=== PATIENT | female | born 1980 | race Asian ===

== ENCOUNTER 2021-11-12 08:09 | Outpatient (CLI) | payer BC, SELFPAY ==
--- NOTE | 2021-11-12 08:15 | CRLHL7_ITS ---
For Patients: As a result of the Century Cures Act, medical imaging exams and procedure reports are released immediately into your electronic medical record. You may view this report before your referring provider. If you have questions, please contact your health care provider. BILATERAL SCREENING MAMMOGRAM WITH COMPUTER-AIDED DETECTION TECHNIQUE: CC and MLO views were obtained. These mammographic images have been obtained using full-field digital technique. These mammographic images were interpreted with the benefit of computer-aided detection. COMPARISON FILM: 11/09/20, 10/25/19. FINDINGS: The breasts are heterogeneously dense, which may obscure small masses IMPRESSION: There is no radiographic evidence for malignancy. ASSESSMENT: BI-RADS Category 1: Negative RECOMMENDATION: Routine screening mammogram in 1 year. A lay language report of this examination will be provided to the patient. Travis Haley M.D. Diagnostic Radiologist [email or web address] WILBERTO/Dictated by: Travis Haley MD @ 11/12/2021 1:18:00 PM (Electronically Signed)
== END 2021-11-12 08:10 | disposition home or self-care (01) ==
LOC: MAMMO 08:10
PROVIDERS: Visit Provider Physician Assistant
DX: Z12.31 Encounter for screening mammogram for malignant neoplasm of breast (principal); R92.2 Inconclusive mammogram
CPT/HCPCS: 77063; 77067

== ENCOUNTER 2023-01-22 09:01 | Outpatient (CLI) | payer BC, SELFPAY ==
--- NOTE | 2023-01-22 09:15 | CRLHL7_ITS ---
For Patients: As a result of the Century Cures Act, medical imaging exams and procedure reports are released immediately into your electronic medical record. You may view this report before your referring provider. If you have questions, please contact your health care provider. BILATERAL SCREENING MAMMOGRAM WITH COMPUTER-AIDED DETECTION TECHNIQUE: CC and MLO views were obtained. These mammographic images have been obtained using full-field digital technique. These mammographic images were interpreted with the benefit of computer-aided detection. COMPARISON FILM: 11/12/21, 11/09/20, 10/25/19. FINDINGS: The breasts are heterogeneously dense, which may obscure small masses IMPRESSION: There is no radiographic evidence for malignancy. ASSESSMENT: BI-RADS Category 1: Negative RECOMMENDATION: Routine screening mammogram in 1 year. A lay language report of this examination will be provided to the patient. Travis Haley M.D. Diagnostic Radiologist [email or web address] WILBERTO/Dictated by: Travis Haley MD @ 01/22/2023 11:45:00 AM (Electronically Signed)
== END 2023-01-22 09:02 | disposition home or self-care (01) ==
LOC: MAMMO 09:02
PROVIDERS: Visit Provider Physician Assistant
DX: Z12.31 Encounter for screening mammogram for malignant neoplasm of breast (principal); R92.2 Inconclusive mammogram
CPT/HCPCS: 77067

== ENCOUNTER 2024-02-09 09:34 | Outpatient (CLI) | payer BC, SELFPAY ==
--- OUTSIDE RECORDS SUMMARY | 2024-02-09 09:36 | XMS_ITS | Clinical Summary ---
Author Organization [facility] Address [place], [place] [address] Care Team Providers Care Deputy Treasurer Name Role Phone Unavailable Primary Care Provider Unavailabl e Allergies No known active allergies Medications Medication Sig Dispensed Refills Start Date End Date Status ibuprofen (ADVIL; MOTRIN) 600 mg tablet Take 1 tablet by mouth every 6 hours. Maximum of 3200 mg in 24 hours. 60 tablet 01/08/2013 Active norethindrone, Contraceptive, (ORTHO MICRONOR) 0.35 mg tabletIndications:Co ntraception Take 1 tablet by mouth once daily. 3 Package 4 02/14/2013 Active vitamin-folic acid 1 mg ( VITAMIN) tablet/capsuleIndica tions:Routine follow-up Take 1 tablet by mouth once daily. 100 capsule 4 02/14/2013 Active Active Problems Problem Noted Date Diagnosed Date S/P section 01/06/2013 delivery at 35 weeks 01/06/2013 Thyroid function test abnormal 07/20/2012 Resolved Problems Problem Noted Date Diagnosed Date Resolved Date Malpresentation of fetus, delivered 01/06/2013 02/14/2013 PROM (premature rupture of membranes) 01/05/2013 02/14/2013 Surveillance of other previo usly prescribed contraceptive method 08/19/2006 08/22/2012 Other general counseling and advice for contraceptive management 05/21/2006 05/21/2006 Immunizations Name Administration Dates Next Due Hepatitis B (Adult) 05/21/2006 Hepatitis B (Peds) 05/02/2005,11/15/2004 Influenza, IIV3 (Age >=3 years) 01/07/2013,01/13 MMR 08/04/1991 Td (Age >=7 Years) 10/07/2002 Tdap 12/02/2012 Tuberculin (PPD) 11/15/2004 Family History Medical History Relation Name Comments Good Health Daughter 2 Diabetes Father Heart Disease Father [place] at 65 Hyperlipidemia Father Stroke Father Hyperlipidemia Mother Hypertension Mother Relation Name Status Comments Brother Alive x7 Daughter 1 Alive x1 Daughter 2 Father Alive Maternal Grandfather Maternal Grandmother Mother Alive Paternal Grandfather Paternal Grandmother Sister Alive x4 Social History Tobacco Use Types Packs/Day Years Used Date Smoking Tobacco: Never Smokeless Tobacco: Never Alcohol Use Standard Drinks/Week Comments No 0 (1 standard drink = 0.6 oz pur e alcohol) Sex and Gender Information Value Date Recorded Sex Assigned at Not on file Gender Identity Not on file Sexual Orientation Not on file Obstetrics History Para Term AB IAB SAB Ectopic Multiple Livin g Live Births 2 2 1 1 2 2 Date Outcome GA Total Labor Labor/2nd/3rd Weight Sex Type Anes PTL Adrianna A1 A5 Name Clin 1998 Term 37w 0d 11h 00m/ 3.15 kg (6 lb 15 oz) F Vag-S pont Epidur al Y Livin g Jovanni Garcia Delivery Location:[facility] 2012 35w 0d 2.63 kg (5 lb 12.8 oz) F CS-LT ranv Y Livin g 8 9 Bravo Delivery Location: Comments:pPROM, malpre sentation Last Filed Vital Signs Vital Sign Reading Time Taken Comments Blood Pressure 104/70 02/14/2013 8:29 AM SUPERVISOR TRAVEL TRAILER Pulse 64 02/14/2013 8:29 AM SUPERVISOR TRAVEL TRAILER Temperature 36.9 C (98.4 F) 01/08/2013 8:44 AM CDT Respiratory Rate 8 02/14/2013 8:29 AM SUPERVISOR TRAVEL TRAILER Oxygen Saturation 98% 01/08/2013 8:44 AM CDT Inhaled Oxygen Concentration - - Weight 64.9 kg (143 lb 1.6 oz) 02/14/2013 8:29 A M SUPERVISOR TRAVEL TRAILER Height 149.9 cm (4' 11) 07/15/2012 2:18 PM CDT Body Mass Index 28.9 07/15/2012 2:18 PM CDT Plan of Treatment Health Maintenance Due Date Last Done Comments Depression screening for age 12+ 1990 BMI (ht and wt on same day) for age 18+ 02/24/1996 Pap test for age 21-65 04/22/2022 0, 04/22/2019, 06/26/2015, Additional history exists Tetanus booster 12/02/2022 12/02/2012, 10/07/2002 Colonoscopy through age 75 2023 Lipids for age 45-75 2023 Mammogram for age 45-75 2023 COVID-19 vaccine series (2023- season) 2023 Influenza for age 9-49 11/22/2023 01/07/2013, 2009 HIV for age 15-65 Completed 07/15/2012 Hepatitis C screening for age 18-79 Completed 07/15/2012 Tdap Completed 12/02/2012 Pneumococcal series for age 6-64 Aged Out No longer eligible based on patient's age to complete this topic Procedures Procedure Name Priority Date/Time Associated Diagnosis Comments TICKET PRINTER THIN PREP PAP SCREEN IMAGED Routine 04/22/2019 12:00 PM SUPERVISOR TRAVEL TRAILER ANTI HIV 1/2 Routine 07/15/2012 3:28 PM CDT Supervision of other normal ANTI HCV Routine 07/15/2012 3:28 PM CDT Supervision of other normal from Last 3 Months or Most Recently Relevant to Health Maintenance Results * TICKET PRINTER THIN PREP PAP SCREEN IMAGED (04/22/2019 12:00 PM SUPERVISOR TRAVEL TRAILER) Case Report Gynecologic Cytology Report Case: [id number] Authorizing Provider: Annalee Aquino MD Collected: 04/22/2019 1200 Ordering Location: [facility] Received: 04/26/2019 0921 First Screen: Rae Fletcher Specimen: TICKET PRINTER ThinPrep Vial Screening, Cervical/Vaginal 05/04/2019 10:43 AM SUPERVISOR TRAVEL TRAILER [facility] ENTRAL [facility]AT[facility] INTERPRETATION/ RESULT NEGATIVE FOR INTRAEPITHELIAL LESION OR MALIGNANCY (NIL) (none) 05/04/2019 10:43 AM SUPERVISOR TRAVEL TRAILER [facility] ENTRAL LABORAT[facility] IMEN ADEQUACY Satisfactory for evaluation Endocervical component present 05/04/2019 10:43 AM SUPERVISOR TRAVEL TRAILER [facility] ENTRAL LABORATORY HPV REQUEST HPV and PAP 05/04/2019 10:43 AM [facility] Date of LMP 04/01/2019 05/04/2019 10:43 AM [facility] Last Pap Date 06/26/2015 05/04/2019 10:43 AM [facility] Last Pap Result NIL 0 10:43 AM [facility] Comment:-HPV Additional Information 05/04/2019 10:43 AM [facility] Comment: Interpreted at [facility] - [address], [place] [address] Automated Review Successful 05/04/2019 10:43 AM [facility] Comment:Specimen processed s uccessfully by automated gum dipper device, ThinPrep Imaging System, [employer] ANCILLARY TESTING TICKET PRINTER HPV Ordered, Please see separate report 05/04/2019 10:43 AM [facility] Note The pap test is a screening technique, not a diagnostic procedure. It is used primarily to screen for squamous cancers and precursor lesions. Published studies have shown that it is subject to both false negative and false positive results. The pap test should not be used as the sole means to diagnose or exclude pre-malignant and malignant lesions. 05/04/2019 10:43 AM [facility] Other (Cervical/Vagina l) 04/22/2019 12:00 PM SUPERVISOR TRAVEL TRAILER 04/26/2019 9:21 AM SUPERVISOR TRAVEL TRAILER Annalee Aquino MD PATHOLOGY/CYTOLOGY [facility] [address] [place] [address], [place] * ANTI HCV (07/15/2012 3:28 PM CDT) ANTI HCV Non-reacti ve [facility] Blood specimen (specimen) BLOOD SPECIMEN / Unknown 07/15/2012 3:28 PM CDT 07/15/2012 3:18 PM CDT Rainer Gonzalez DO SEND OUTS [facility] [place] ZIP [id number] [address] [place] [address] * (ABNORMAL) ANTI HIV 1/2 (07/15/2012 3:28 PM CDT) ANTI HIV 1/2 Preliminary Positive for HIV-1 and/or HIV-2 Antibodies, awaiting HIV-1 Western Blot Confirmation. HIV-1 Western Blot reflexed(A) [facility] Blood specimen (specimen) BLOOD SPECIMEN / Unknown 07/15/2012 3:28 PM CDT 07/15/2012 3:18 PM CDT Rainer Gonzalez DO [facility]END OUT[facility] [place] ZIP [id number] [address] [place] [address] from Last 3 Months or Most Recently Relevant to Health Maintenance Advance Directives * Full Code (Latest Code Status on File) Date Activated Date Inactivated Comments 01/05/2013 4:14 PM 01/08/2013 3:56 PM * Full Code Date Activated Date Inactivated Comments 01/05/2013 9:58 AM 01/05/2013 4:14 PM
--- NOTE | 2024-02-09 10:15 | CRLHL7_ITS ---
For Patients: As a result of the Century Cures Act, medical imaging exams and procedure reports are released immediately into your electronic medical record. You may view this report before your referring provider. If you have questions, please contact your health care provider. BILATERAL DIGITAL SCREENING MAMMOGRAM WITH COMPUTER-AIDED DETECTION AND TOMOSYNTHESIS CLINICAL HISTORY: Routine screening exam. COMPARISON: 01/22/23, 11/12/21, 11/09/20. TECHNIQUE: Digital mammogram in CC and MLO projections including computer-aided detection (CAD). Tomosynthesis was used in this interpretation. BREAST COMPOSITION: The breasts are heterogeneously dense, which may obscure small masses. FINDINGS: RIGHT Breast: No suspicious findings. LEFT Breast: Focal asymmetric density upper outer quadrant 9 cm from the nipple. IMPRESSION: LEFT breast asymmetry/mass. RECOMMENDATIONS: Additional mammographic views of the LEFT breast including 3D spot compression CC/MLO. LEFT breast ultrasound may also be required. The [facility] will contact the patient. A lay language report of this examination will be provided to the patient. BI-RADS Category 0: Incomplete: Need Additional Imaging Evaluation Dictated by Travis Haley MD @ 02/09/2024 10:06:02 AM jj/Dictated by: Travis Haley MD @ 02/09/2024 10:06:00 AM (Electronically Signed)
== END 2024-02-09 09:35 | disposition home or self-care (01) ==
LOC: MAMMO 09:34
PROVIDERS: PCP Family Medicine; Visit Provider Nurse Practitioner Family
DX: Z12.31 Encounter for screening mammogram for malignant neoplasm of breast (principal); R92.333 Mammographic heterogeneous density, bilateral breasts; N63.20 Unspecified lump in the left breast, unspecified quadrant
CPT/HCPCS: 77063; 77067

== ENCOUNTER 2024-02-17 09:28 | Outpatient (CLI) | payer BC, SELFPAY ==
--- OUTSIDE RECORDS SUMMARY | 2024-02-17 09:29 | XMS_ITS | Clinical Summary ---
Author Organization [facility] [facility] Address [place], [place] [address] Care Team Providers Care .Net Architect Name Role Phone Unavailable Primary Care Provider [...] Daughter 2 Diabetes Father Heart Disease Father [place] at 65 Hyperlipidemia Father Stroke Father Hyperlipidemia [...] al Y Livin g Jovanni Garcia Delivery Location:[facility] 2012 35w 0d 2.63 kg (5 lb 12.8 oz) F CS-LT ranv Y Livin g 8 9 [facility] Delivery Location: Comments:pPROM, malpre sentation Last Filed Vital Signs Vital Sign Reading Time Taken Comments Blood Pressure 104/70 02/14/2013 8:29 AM KEYBOARD OPERATOR Pulse 64 02/14/2013 8:29 AM KEYBOARD OPERATOR Temperature 36.9 C (98.4 F) 01/08/2013 8:44 AM CDT Respiratory Rate 8 02/14/2013 8:29 AM KEYBOARD OPERATOR Oxygen Saturation 98% 01/08/2013 8:44 AM CDT Inhaled Oxygen Concentration - - Weight 64.9 kg (143 lb 1.6 oz) 02/14/2013 8:29 A M KEYBOARD OPERATOR Height 149.9 cm (4' 11) 07/15/2012 2:18 [...] Procedure Name Priority Date/Time Associated Diagnosis Comments LOCOMOTIVE ENGINEER THIN PREP PAP SCREEN IMAGED Routine 04/22/2019 12:00 PM KEYBOARD OPERATOR ANTI HIV 1/2 Routine 07/15/2012 3:28 PM CDT Supervision of other normal ANTI HCV Routine 07/15/2012 3:28 PM CDT Supervision of other normal from Last 3 Months or Most Recently Relevant to Health Maintenance Results * LOCOMOTIVE ENGINEER THIN PREP PAP SCREEN IMAGED (04/22/2019 12:00 PM KEYBOARD OPERATOR) Case Report Gynecologic Cytology Report Case: [id number] Authorizing Provider: Annalee Aquino MD Collected: 04/22/2019 1200 Ordering Location: [facility] Received: 04/26/2019 0921 First Screen: Rae Fletcher Specimen: LOCOMOTIVE ENGINEER ThinPrep Vial Screening, Cervical/Vaginal 05/04/2019 10:43 AM KEYBOARD OPERATOR [facility]-C ENTRAL LABORATORY INTERPRETATION/ RESULT NEGATIVE FOR INTRAEPITHELIAL LESION OR MALIGNANCY (NIL) (none) 05/04/2019 10:43 AM KEYBOARD OPERATOR [facility] ENTRAL LABORAT[facility] IMEN ADEQUACY Satisfactory for evaluation Endocervical component present 05/04/2019 10:43 AM KEYBOARD OPERATOR [facility] ENTRAL LABORATORY HPV REQUEST HPV and PAP 05/04/2019 10:43 AM [facility] Date of LMP 04/01/2019 05/04/2019 10:[address] [facility] Last Pap Date 06/26/2015 05/04/2019 10:[address] [facility] Last Pap Result NIL 0 10:43 AM [facility] Comment:-HPV Additional Information 05/04/2019 10:43 AM [facility] Comment: Interpreted at [facility] - [address], [place] [address] Automated Review Successful 05/04/2019 10:43 AM [facility] Comment:Specimen processed s uccessfully by automated campaign manager device, ThinPrep Imaging System, [employer] ANCILLARY TESTING LOCOMOTIVE ENGINEER HPV Ordered, Please see separate report 05/04/2019 10:43 AM [facility] Note The pap test is a screening technique, not a diagnostic procedure. It is used primarily to screen for squamous cancers and precursor lesions. Published studies have shown that it is subject to both false negative and false positive results. The pap test should not be used as the sole means to diagnose or exclude pre-malignant and malignant lesions. 05/04/2019 10:43 AM [facility] Other (Cervical/Vagina l) 04/22/2019 12:00 PM KEYBOARD OPERATOR 04/26/2019 9:21 AM KEYBOARD OPERATOR Annalee Aquino MD PATHOLOGY/CYTOLOGY [facility] [address] [place] [address], [place] * ANTI HCV (07/15/2012 3:28 PM CDT) ANTI HCV Non-reacti ve [facility] Blood specimen (specimen) BLOOD SPECIMEN / Unknown 07/15/2012 3:28 PM CDT 07/15/2012 3:18 PM CDT Rainer Gonzalez DO SEND OUTS [facility] INTERNAL ZIP [address] [address] [place] [address] * (ABNORMAL) ANTI HIV 1/2 (07/15/2012 3:28 PM CDT) ANTI HIV 1/2 Preliminary Positive for HIV-1 and/or HIV-2 Antibodies, awaiting HIV-1 Western Blot Confirmation. HIV-1 Western Blot reflexed(A) [facility] Blood specimen (specimen) BLOOD SPECIMEN / Unknown 07/15/2012 3:28 PM CDT 07/15/2012 3:18 PM CDT Rainer Gonzalez DO SEND OUTS [facility] INTERNAL ZIP [address] [address] [place] [address] from Last 3 Months or Most Recently Relevant to Health Maintenance Advance Directives * Full Code (Latest Code Status on File) Date Activated Date Inactivated Comments 01/05/2013 4:14 PM 01/08/2013 3:56 PM * Full Code Date Activated Date Inactivated Comments 01/05/2013 9:58 AM 01/05/2013 4:14 PM
--- NOTE | 2024-02-17 09:45 | CRLHL7_ITS ---
For Patients: As a result of the Cures Act, medical imaging exams and procedure reports are released immediately into your electronic medical record. You may view this report before your referring provider. If you have questions, please contact your health care provider. DIGITAL DIAGNOSTIC LEFT MAMMOGRAM USING TOMOSYNTHESIS AND COMPUTER-AIDED DETECTION LEFT BREAST ULTRASOUND CLINICAL HISTORY: LEFT breast mass/asymmetry. COMPARISON: 02/09/24, 01/22/23, 11/12/21. TECHNIQUE: Digital LEFT mammogram in two projections. Tomosynthesis and CAD were used in this interpretation. Real-time ultrasound imaging of LEFT breast with imaging documentation. BREAST COMPOSITION: The breasts are heterogeneously dense, which may obscure small masses. FINDINGS: 3D spot compression CC/MLO LEFT breast mammogram images submitted. Persistent nodular density in the upper outer quadrant without architectural distortion or suspicious calcification. Targeted LEFT breast ultrasound performed at 2 o`clock 9 cm from the nipple. In this location, there is a solid hypoechoic nodule measuring 17 x 8 x 12 millimeters. IMPRESSION: Indeterminate solid nodule LEFT breast 2 o`clock 9 cm from the nipple measuring 17 x 8 x 12 millimeters. RECOMMENDATIONS: Ultrasound-guided core needle biopsy. A lay language report of this examination will be provided to the patient. BI-RADS Category 4: Suspicious Dictated by Travis Haley MD @ 02/17/2024 10:26:32 AM /Dictated by: Travis Haley MD @ 02/17/2024 10:26:00 AM (Electronically Signed)
--- NOTE | 2024-02-17 10:15 | CRLHL7_ITS ---
For Patients: As a result of the Century Cures Act, medical imaging exams and procedure reports are released immediately into your electronic medical record. You may view this report before your referring provider. If you have questions, please contact your health care provider. PLEASE SEE DIGITAL DIAGNOSTIC LEFT MAMMOGRAM PERFORMED SAME DAY CRL:que grey/Dictated by: Travis Haley MD @ 02/17/2024 10:52:00 AM (Electronically Signed)
== END 2024-02-17 09:29 | disposition home or self-care (01) ==
LOC: MAMMO 09:28
PROVIDERS: PCP Family Medicine; Visit Provider Nurse Practitioner Family
DX: N63.20 Unspecified lump in the left breast, unspecified quadrant (principal); R92.8 Other abnormal and inconclusive findings on diagnostic imaging of breast
CPT/HCPCS: 76642; 77065; G0279

== ENCOUNTER 2024-03-02 09:02 | Outpatient (CLI) | payer BC, SELFPAY ==
--- NOTE | 2024-03-02 09:15 | CRLHL7_ITS ---
For Patients: As a result of the Century Cures Act, medical imaging exams and procedure reports are released immediately into your electronic medical record. You may view this report before your referring provider. If you have questions, please contact your health care provider. ULTRASOUND-GUIDED BREAST BIOPSY AND POST-BIOPSY DIGITAL MAMMOGRAM FOR BIOPSY MARKER PLACEMENT CLINICAL HISTORY: Indeterminate solid nodule. COMPARISON STUDIES: 02/17/2024. TECHNIQUE: Real-time ultrasound with image documentation was used for targeting the breast lesion. Core biopsy specimens were obtained using an automated gun with an 18-gauge biopsy needle. Post-biopsy CC and ML digital mammograms were obtained to document position of the biopsy marker. CONSENT and TIME OUT: The procedure, risks, and alternatives were explained to the patient and a consent was signed. [place] Protocol was followed including pre-procedure verification that relevant information/documentation was available, reviewed and properly matched to the patient; consent accurate and complete; and equipment and supplies available. Time Out was conducted just prior to starting procedure to verify the four required elements: patient identity, correct side/site marked (if applicable), procedure, relevant images/results properly labeled and displayed (if applicable). PROCEDURE: The patient was positioned supine on the ultrasound table. The breast was prepped with ChloraPrep. 7 cc of 1 percent lidocaine used for local anesthesia. Core samples were obtained. A sterile metal biopsy clip was placed percutaneously to jaswant the lesion position within the breast. The specimens were placed in 10% formalin and sent to the pathology department. Pressure was held on the biopsy site until all bleeding subsided. The skin incision was closed with Steri-Strips. An ice pack was positioned over the biopsy site. Post-biopsy instructions were reviewed with the patient, and a written copy was given to her. LATERALITY: LEFT. LESION: Hypoechoic circumscribed solid nodule measuring 1.7 x 0.8 x 1.2 cm at 2 o`clock 9 cm from the nipple. SUSPICION FOR MALIGNANCY: Intermediate. NUMBER OF SAMPLES: 5. BIOPSY CLIP SHAPE: Oval. PROXIMITY OF CLIP TO TARGET: Within the lesion. IMPRESSION: Ultrasound-guided breast biopsy. When the pathology report is available, an addendum to this report will be made. ACR not applicable Dictated by Travis Haley MD @ 03/02/2024 12:23:01 PM jj/Dictated by: Travis Haley MD @ 03/02/2024 12:23:00 PM (Electronically Signed)
--- NOTE | 2024-03-02 10:00 | CRLHL7_ITS ---
For Patients: As a result of the Century Cures Act, medical imaging exams and procedure reports are released immediately into your electronic medical record. You may view this report before your referring provider. If you have questions, please contact your health care provider. SEE ULTRASOUND-GUIDED LEFT BREAST BIOPSY PERFORMED SAME DAY CRL:que grey/Dictated by: Travis Haley MD @ 03/02/2024 12:23:00 PM (Electronically Signed)
== END 2024-03-02 09:03 | disposition home or self-care (01) ==
LOC: US 09:03
PROVIDERS: PCP Family Medicine; Visit Provider Nurse Practitioner Family
DX: N63.20 Unspecified lump in the left breast, unspecified quadrant (principal); D24.2 Benign neoplasm of left breast; R92.8 Other abnormal and inconclusive findings on diagnostic imaging of breast
CPT/HCPCS: 19083; 77065; 88305; A4648; A4649

== ENCOUNTER 2024-05-18 10:12 | Outpatient (CLI) | payer BC, SELFPAY ==
[2024-05-20 21:21] LABS: HPV Source Cervical; HPV, High Risk by TMA Not Detected
== END 2024-05-18 10:13 | disposition home or self-care (01) ==
PROVIDERS: PCP Family Medicine; Visit Provider Nurse Practitioner Family
DX: I10 Essential (primary) hypertension (principal); Z13.220 Encounter for screening for lipoid disorders; Z12.4 Encounter for screening for malignant neoplasm of cervix; Z11.51 Encounter for screening for human papillomavirus (HPV)
CPT/HCPCS: 80053; 80061; 87624; 87625; 88141; 88142